=== PATIENT | male | born 1990 | race Caucasian/White ===

== ENCOUNTER 2019-08-07 19:29 | Emergency (ER) | payer MEDICAID ==
[~2019-08-07] VITALS: Ht 172.7 cm; Wt 73.0 kg
[2019-08-07] MEDS ORDERED: ACETAMINOPHEN 500MG TABLET PO ONE (21:15)
[2019-08-07] MEDS ORDERED: IBUPROFEN 800MG TABLET PO ONE (21:15)
[2019-08-07] MEDS ORDERED: TETANUS, DIPHTHERIA, PERTUSSIS VAC/PF 0.5ML (>7YR OLD) IM ONE (22:45)
[2019-08-07] MEDS ORDERED: LIDOCAINE HCL/PF 1% 10 MG/ML 5ML VIAL IJ ONE (23:30)
[2019-08-08 00:50] VITALS: BP 128/75
== END 2019-08-08 00:59 | disposition home or self-care (01) ==
LOC: ER 19:29 → EDBD 19:29 → ER 08-08 00:59
DX: S51.012A Laceration without foreign body of left elbow, initial encounter (principal); E78.00 Pure hypercholesterolemia, unspecified; V89.2XXA Person injured in unspecified motor-vehicle accident, traffic, initial encounter; Y93.89 Activity, other specified; Y92.89 Other specified places as the place of occurrence of the external cause; Y99.8 Other external cause status
CPT/HCPCS: 12002; 73070; 90471; 90715; 99283; J3490; Z7610; 12001